=== PATIENT | female | born 1965 | race Two or more races ===

== ENCOUNTER 2017-11-30 07:07 | Day surgery (SDC) | payer OTHER | END 2017-11-30 12:40 | disposition home or self-care (01) | LOC: AMB-ENDOS 07:07 | DX: D12.5 Benign neoplasm of sigmoid colon (principal); K64.8 Other hemorrhoids; K63.5 Polyp of colon ==

== ENCOUNTER 2019-07-03 12:27 | Inpatient (IN) | payer OTHER ==
[~2019-07-03] VITALS: Ht 157.5 cm; Wt 96.6 kg
[2019-07-03] MEDS ORDERED: CYMBALTA60 MG PO (12:47)
[2019-07-03] MEDS ORDERED: METFORMIN HCL500 M3 PO (12:47)
[2019-07-03] MEDS ORDERED: SYNTHROID50 MCG PO (12:47)
[2019-07-03] MEDS ORDERED: ARICEPT10 MG PO (12:48)
[2019-07-03] MEDS ORDERED: XANAX1 MG PO (12:48)
[2019-07-03] MEDS ORDERED: CLONAZEPAM2 M1 PO (12:48)
[2019-07-03] MEDS ORDERED: VOLTAREN100 GM (12:49)
[2019-07-03] MEDS ORDERED: CRESTOR20 MG PO (12:49)
[2019-07-03] MEDS ORDERED: MIRTAZAPINE30 M1 PO (12:49)
[2019-07-13] MEDS ORDERED: MIRTAZAPINE15 MG PO (08:10)
[2019-07-24] MEDS ORDERED: HYOSCYAMINE0.125 M1 SL (10:52)
[2019-07-24] MEDS ORDERED: INTESTINEX680 M1 PO (10:53)
[2019-07-24] MEDS ORDERED: OXYC1TAB9 PO (10:53)
[2019-07-24] MEDS ORDERED: PROTONIX40 MG PO (10:53)
[2019-07-24] MEDS ORDERED: LIDODERM1 EACH TOP (10:54)
[2019-07-24] MEDS ORDERED: AMOX1TAB5 PO (10:54)
== END 2019-07-24 14:44 | disposition home or self-care (01) | DRG 329 ==
LOC: SURH 07-06 07:00 → O/R 07-13 06:26 → SURH 07-13 07:00
PROVIDERS: ADMIT Surgery
PROC: 0DJD8ZZ Inspection of Lower Intestinal Tract, Via Natural or Artificial Opening Endoscopic (ICD-10-PCS; 2019-07-13)
PROC: 0DTN4ZZ Resection of Sigmoid Colon, Percutaneous Endoscopic Approach (ICD-10-PCS; principal; 2019-07-13 14:45)
PROC: 4A033R1 Measurement of Arterial Saturation, Peripheral, Percutaneous Approach (ICD-10-PCS; 2019-07-14)
PROC: 3E0F7GC Introduction of Other Therapeutic Substance into Respiratory Tract, Via Natural or Artificial Opening (ICD-10-PCS; 2019-07-14)
PROC: BB24Y0Z Computerized Tomography (CT Scan) of Bilateral Lungs using Other Contrast, Unenhanced and Enhanced (ICD-10-PCS; 2019-07-17)
PROC: BW21Y0Z Computerized Tomography (CT Scan) of Abdomen and Pelvis using Other Contrast, Unenhanced and Enhanced (ICD-10-PCS; 2019-07-17)
PROC: 3E0436Z Introduction of Nutritional Substance into Central Vein, Percutaneous Approach (ICD-10-PCS; 2019-07-17)
PROC: 02HV33Z Insertion of Infusion Device into Superior Vena Cava, Percutaneous Approach (ICD-10-PCS; 2019-07-17)
PROC: 0W9F30Z Drainage of Abdominal Wall with Drainage Device, Percutaneous Approach (ICD-10-PCS; 2019-07-21)
DX: K57.20 Diverticulitis of large intestine with perforation and abscess without bleeding (principal); K65.1 Peritoneal abscess; J18.9 Pneumonia, unspecified organism; J90 Pleural effusion, not elsewhere classified; K91.31 Postprocedural partial intestinal obstruction; J95.89 Other postprocedural complications and disorders of respiratory system, not elsewhere classified; J98.11 Atelectasis; R50.82 Postprocedural fever; R09.02 Hypoxemia; G47.33 Obstructive sleep apnea (adult) (pediatric); E66.01 Morbid (severe) obesity due to excess calories; E11.9 Type 2 diabetes mellitus without complications; G30.0 Alzheimer's disease with early onset; F02.80 Dementia in other diseases classified elsewhere, unspecified severity, without behavioral disturbance, psychotic disturbance, mood disturbance, and anxiety; Z79.4 Long term (current) use of insulin

== ENCOUNTER 2019-07-05 05:40 | Day surgery (SDC) | payer OTHER ==
[~2019-07-05 05:40] MED LIST: ARICEPT10 MG PO; CLONAZEPAM2 M1 PO; CRESTOR20 MG PO; CYMBALTA60 MG PO; METFORMIN HCL500 M3 PO; MIRTAZAPINE30 M1 PO; SYNTHROID50 MCG PO; VOLTAREN100 GM; XANAX1 MG PO
== END 2019-07-05 09:45 | disposition home or self-care (01) ==
LOC: AMB-ENDOS 05:40
DX: D12.2 Benign neoplasm of ascending colon (principal); K64.8 Other hemorrhoids

== ENCOUNTER 2019-08-07 21:07 | Emergency (ER) | payer OTHER ==
[~2019-08-07] VITALS: Ht 160 cm; Wt 108.9 kg
[~2019-08-07 21:07] MED LIST changes: +AMOX1TAB5 PO; +HYOSCYAMINE0.125 M1 SL; +INTESTINEX680 M1 PO; +LIDODERM1 EACH TOP; +MIRTAZAPINE15 MG PO; +OXYC1TAB9 PO; +PROTONIX40 MG PO
== END 2019-08-08 17:25 | disposition home or self-care (01) ==
LOC: ER 21:07
DX: I82.492 Acute embolism and thrombosis of other specified deep vein of left lower extremity (principal); I73.9 Peripheral vascular disease, unspecified

== ENCOUNTER 2019-09-13 09:37 | Outpatient (CLI) | payer OTHER | END 2019-09-13 09:48 | disposition home or self-care (01) | LOC: RAD 09:37 | PROVIDERS: ATTEND Internal Medicine Rheumatology | DX: M16.0 Bilateral primary osteoarthritis of hip (principal); M17.0 Bilateral primary osteoarthritis of knee; M51.36 Other intervertebral disc degeneration, lumbar region; M50.30 Other cervical disc degeneration, unspecified cervical region; D37.4 Neoplasm of uncertain behavior of colon; D12.4 Benign neoplasm of descending colon; K57.20 Diverticulitis of large intestine with perforation and abscess without bleeding ==

== ENCOUNTER → 2019-09-13 10:51 | Outpatient (CLI) | payer OTHER | END | disposition home or self-care (01) | LOC: LAB 10:51 | PROVIDERS: ATTEND Surgery | DX: D37.4 Neoplasm of uncertain behavior of colon (principal); D12.4 Benign neoplasm of descending colon; K57.20 Diverticulitis of large intestine with perforation and abscess without bleeding ==

== ENCOUNTER 2019-09-19 20:56 | Inpatient (IN) | payer OTHER ==
[~2019-09-19] VITALS: Ht 61 cm; Wt 5.0 kg
[2019-10-13] MEDS ORDERED: ULTRACET PO (08:48)
[2019-10-13] MEDS ORDERED: INTESTINEX680 M1 PO (08:48)
== END 2019-10-14 17:29 | DRG 329 ==
LOC: ER 20:56 → SURH 09-20 09:16 → ICU 09-20 09:16 → SEC-K 09-20 09:16 → SURH 09-20 14:50 → ICU 09-22 22:40 → SURH 10-06 21:00
PROVIDERS: ADMIT Surgery; ATTEND Surgery
PROC: BW21Y0Z Computerized Tomography (CT Scan) of Abdomen and Pelvis using Other Contrast, Unenhanced and Enhanced (ICD-10-PCS; 2019-09-20)
PROC: BW40ZZZ Ultrasonography of Abdomen (ICD-10-PCS; 2019-09-20)
PROC: 0DH67UZ Insertion of Feeding Device into Stomach, Via Natural or Artificial Opening (ICD-10-PCS; 2019-09-20)
PROC: 0D7G8ZZ Dilation of Left Large Intestine, Via Natural or Artificial Opening Endoscopic (ICD-10-PCS; 2019-09-21)
PROC: 8E0ZXY6 Isolation (ICD-10-PCS; 2019-09-21)
PROC: 3E1M38X Irrigation of Peritoneal Cavity using Irrigating Substance, Percutaneous Approach, Diagnostic (ICD-10-PCS; 2019-09-22)
PROC: 02HV33Z Insertion of Infusion Device into Superior Vena Cava, Percutaneous Approach (ICD-10-PCS; 2019-09-22)
PROC: 3E0436Z Introduction of Nutritional Substance into Central Vein, Percutaneous Approach (ICD-10-PCS; 2019-09-22)
PROC: 4A033R1 Measurement of Arterial Saturation, Peripheral, Percutaneous Approach (ICD-10-PCS; 2019-09-22)
PROC: 0BH17EZ Insertion of Endotracheal Airway into Trachea, Via Natural or Artificial Opening (ICD-10-PCS; 2019-09-22)
PROC: 5A1945Z Respiratory Ventilation, 24-96 Consecutive Hours (ICD-10-PCS; 2019-09-22)
PROC: 0T9B70Z Drainage of Bladder with Drainage Device, Via Natural or Artificial Opening (ICD-10-PCS; 2019-09-22)
PROC: 0DBG0ZZ Excision of Left Large Intestine, Open Approach (ICD-10-PCS; principal; 2019-09-22 11:00)
PROC: B24BZZZ Ultrasonography of Heart with Aorta (ICD-10-PCS; 2019-09-23)
PROC: 4A12X4Z Monitoring of Cardiac Electrical Activity, External Approach (ICD-10-PCS; 2019-09-23)
PROC: 30243N1 Transfusion of Nonautologous Red Blood Cells into Central Vein, Percutaneous Approach (ICD-10-PCS; 2019-09-26)
DX: K56.690 Other partial intestinal obstruction (principal); K65.1 Peritoneal abscess; K63.1 Perforation of intestine (nontraumatic); J95.822 Acute and chronic postprocedural respiratory failure; T81.12XA Postprocedural septic shock, initial encounter; A41.9 Sepsis, unspecified organism; B37.1 Pulmonary candidiasis; R18.8 Other ascites; J90 Pleural effusion, not elsewhere classified; E87.2 Acidosis; A04.72 Enterocolitis due to Clostridium difficile, not specified as recurrent; N17.9 Acute kidney failure, unspecified; J95.89 Other postprocedural complications and disorders of respiratory system, not elsewhere classified; J98.11 Atelectasis; T81.44XA Sepsis following a procedure, initial encounter; I48.19 Other persistent atrial fibrillation; E27.40 Unspecified adrenocortical insufficiency; B37.49 Other urogenital candidiasis; T81.41XA Infection following a procedure, superficial incisional surgical site, initial encounter; R53.81 Other malaise; E87.6 Hypokalemia; B96.29 Other Escherichia coli [E. coli] as the cause of diseases classified elsewhere; B95.2 Enterococcus as the cause of diseases classified elsewhere; K76.0 Fatty (change of) liver, not elsewhere classified; K63.89 Other specified diseases of intestine; K57.30 Diverticulosis of large intestine without perforation or abscess without bleeding; K66.0 Peritoneal adhesions (postprocedural) (postinfection); I08.1 Rheumatic disorders of both mitral and tricuspid valves; R11.2 Nausea with vomiting, unspecified; E11.65 Type 2 diabetes mellitus with hyperglycemia; E66.01 Morbid (severe) obesity due to excess calories; G47.33 Obstructive sleep apnea (adult) (pediatric); F32.9 Major depressive disorder, single episode, unspecified; Z20.828 Contact with and (suspected) exposure to other viral communicable diseases; Z79.4 Long term (current) use of insulin; Z79.01 Long term (current) use of anticoagulants

== ENCOUNTER 2019-10-31 07:51 | Emergency (ER) | payer OTHER ==
[~2019-10-31] VITALS: Ht 157.5 cm; Wt 78.5 kg
[~2019-10-31 07:51] MED LIST changes: +ULTRACET PO
[2019-10-31] MEDS ORDERED: ULTRAM50 MG PO (13:42)
[2019-10-31] MEDS ORDERED: KETO10TA2 PO (13:42)
== END 2019-10-31 14:31 ==
LOC: ER 07:51
DX: R09.02 Hypoxemia (principal); Z99.11 Dependence on respirator [ventilator] status

== ENCOUNTER 2019-11-08 18:38 | Emergency (ER) | payer OTHER ==
[~2019-11-08] VITALS: Ht 157.5 cm; Wt 77.1 kg
[~2019-11-08 18:38] MED LIST changes: +KETO10TA2 PO; +ULTRAM50 MG PO
[2019-11-08] MEDS ORDERED: CARAFATE1 GM/10 ML PO (18:51)
[2019-11-08] MEDS ORDERED: PEPCID AC20 MG PO (18:51)
== END 2019-11-08 20:45 | disposition home or self-care (01) ==
LOC: ER 18:38
DX: S20.211A Contusion of right front wall of thorax, initial encounter (principal); S30.0XXA Contusion of lower back and pelvis, initial encounter; S80.01XA Contusion of right knee, initial encounter; S70.01XA Contusion of right hip, initial encounter; W18.09XA Striking against other object with subsequent fall, initial encounter; Y93.89 Activity, other specified; Y92.098 Other place in other non-institutional residence as the place of occurrence of the external cause; Y99.8 Other external cause status

== ENCOUNTER 2019-11-18 22:50 | Emergency (ER) | payer OTHER ==
[~2019-11-18] VITALS: Ht 157.5 cm; Wt 79.4 kg
[~2019-11-18 22:50] MED LIST changes: +CARAFATE1 GM/10 ML PO; +PEPCID AC20 MG PO
== END 2019-11-19 09:58 | disposition home or self-care (01) ==
LOC: ER 22:50
DX: S00.83XA Contusion of other part of head, initial encounter (principal); S80.02XA Contusion of left knee, initial encounter; S80.01XA Contusion of right knee, initial encounter; S90.02XA Contusion of left ankle, initial encounter; S90.01XA Contusion of right ankle, initial encounter; S20.212A Contusion of left front wall of thorax, initial encounter; S20.211A Contusion of right front wall of thorax, initial encounter; R07.89 Other chest pain; R10.2 Pelvic and perineal pain; M54.6 Pain in thoracic spine; R53.81 Other malaise; M19.011 Primary osteoarthritis, right shoulder; M77.31 Calcaneal spur, right foot; M77.32 Calcaneal spur, left foot; G30.8 Other Alzheimer's disease; F02.80 Dementia in other diseases classified elsewhere, unspecified severity, without behavioral disturbance, psychotic disturbance, mood disturbance, and anxiety; W01.198A Fall on same level from slipping, tripping and stumbling with subsequent striking against other object, initial encounter; Y93.01 Activity, walking, marching and hiking; Y92.59 Other trade areas as the place of occurrence of the external cause; Y99.8 Other external cause status

== ENCOUNTER → 2019-12-22 12:56 | Outpatient (CLI) | payer OTHER | END | disposition home or self-care (01) | LOC: T RESPIRAT 12:56 → LAB 12:56 | PROVIDERS: ATTEND Internal Medicine Pulmonary Disease | DX: R06.02 Shortness of breath (principal); J45.50 Severe persistent asthma, uncomplicated ==

== ENCOUNTER 2020-02-13 06:24 | Day surgery (SDC) | payer OTHER | END 2020-02-13 11:30 | disposition home or self-care (01) | LOC: AMB-ENDOS 06:24 | PROVIDERS: ATTEND Surgery | DX: K62.89 Other specified diseases of anus and rectum (principal); Z20.828 Contact with and (suspected) exposure to other viral communicable diseases; Z93.3 Colostomy status ==

== ENCOUNTER 2023-01-26 08:42 | Outpatient (CLI) | payer OTHER | END 2023-01-26 08:51 | disposition home or self-care (01) | LOC: RX STUDY 08:42 | PROVIDERS: ATTEND Surgery | DX: D37.4 Neoplasm of uncertain behavior of colon (principal); D12.4 Benign neoplasm of descending colon; K57.20 Diverticulitis of large intestine with perforation and abscess without bleeding; J84.10 Pulmonary fibrosis, unspecified; J84.112 Idiopathic pulmonary fibrosis ==

== ENCOUNTER 2023-11-25 12:51 | Outpatient (CLI) | payer OTHER ==
[2023-11-25 13:58] LABS: ABG PH 7.351 (7.35-7.45); ABG pCO2 40.8 mmHg (35-45); BASE EXCESS -3.3 mmol/l; BICARBONATE 22.1 mmol/l (23-25); SaO2 95.9 %; Tco2 23.4 mmol/l
[2023-11-25 13:59] LABS: allen test SATISFACTORY; o2 31 %; puncture site RADIAL RIGHT
== END 2023-11-25 12:52 | disposition home or self-care (01) ==
LOC: LAB 12:51
DX: J43.9 Emphysema, unspecified (principal)

== ENCOUNTER 2024-07-21 14:53 | Emergency (ER) | payer OTHER ==
[~2024-07-21] VITALS: Ht 154.9 cm; Wt 90.7 kg
[2024-07-21 15:14] VITALS: BP 112/74; O2SAT 98
[2024-07-21] MEDS ORDERED: SYNTHROID88 MCG PO (15:17)
[2024-07-21] MEDS ORDERED: COZAAR25 MG PO (15:17)
[2024-07-21] MEDS ORDERED: ZYLOPRIM100 M1 PO (15:18)
[2024-07-21] MEDS ORDERED: DULOXETINE HCL40 MG PO (15:18)
[2024-07-21] MEDS ORDERED: LANZOPRAZOLE (15:18)
[2024-07-21] MEDS ORDERED: TOPROL XL25 M1 (15:18)
[2024-07-21] MEDS ORDERED: ZYRTEC10 M3 PO (15:18)
[2024-07-21] MEDS ORDERED: LEVSIN0.125 MG PO (15:19)
[2024-07-21] MEDS ORDERED: HYDRODIURIL12.5 MG PO (15:19)
[2024-07-21] MEDS ORDERED: UBRELVY100 MG PO (15:19)
[2024-07-21] MEDS ORDERED: PEPCID AC20 MG PO (15:19)
[2024-07-21] MEDS ORDERED: METFORMIN HCL500 M3 PO (15:20)
[2024-07-21] MEDS ORDERED: EMGALITY P120 MG/1 M SQ (15:20)
[2024-07-21] MEDS ORDERED: ELIQUIS5 M1 PO (15:20)
[2024-07-21] MEDS ORDERED: ARNUITY ELLIP100 MCG IH (15:20)
[2024-07-21] MEDS ORDERED: BENZONATATE150 MG PO (15:21)
[2024-07-21] MEDS ORDERED: TOPIRAMATE ER50 M1 PO (15:21)
[2024-07-21] MEDS ORDERED: ZANAFLEX4 M1 PO (15:21)
[2024-07-21] MEDS ORDERED: CLONAZEPAM2 M1 PO (15:21)
[2024-07-21] MEDS ORDERED: TYLENOL ARTHRI650 MG (15:22)
[2024-07-21] MEDS ORDERED: CYCLOSPORINE25 MG (15:22)
[2024-07-21] MEDS ORDERED: ALLERGY RELIE15.8 ML NASAL (15:23)
[2024-07-21] MEDS ORDERED: PROAIR RESPICL90 MCG IH (15:23)
[2024-07-21] MEDS ORDERED: ATARAX10 MG PO (15:24)
[2024-07-21] MEDS ORDERED: TOLTERODINE TART2 M1 PO (15:24)
[2024-07-21] MEDS ORDERED: LIPITOR40 M1 PO (15:24)
[2024-07-21] MEDS ORDERED: MIRTAZAPINE30 M1 PO (15:25)
[2024-07-21] MEDS ORDERED: TRAZODONE HCL150 MG PO (15:25)
[2024-07-21] MEDS ORDERED: AMBIEN10 MG PO (15:26)
[2024-07-21] MEDS ORDERED: SINGULAIR4 M1 (15:26)
[2024-07-21] MEDS ORDERED: 0.9 % SODIUM CHLORIDE 1,000 ML IV SCH (16:15)
[2024-07-21] MEDS ORDERED: BARIUM SULFATE 450 ML ORAL.SUSP PO ONE (16:20)
[2024-07-21] MEDS ORDERED: FAMOTIDINE/PF 20 MG in 0.9 % SODIUM CHLORIDE 8 ML IV PUSH STA (16:42)
[2024-07-21] MEDS ORDERED: FAMOTIDINE/PF 20 MG/2 ML VIAL ONE (16:45)
[2024-07-21 16:53] LABS: BASO % 0.7 % (0.1-1.2); HEMATOCRIT 39.1 % (34.1-44.9); HEMOGLOBIN 12.4 g/dL (11.2-15.7); LYMPH # 2.27 (1.18-3.74); LYMPH % 19.2 % (19.3-53.1); MEAN CORPUSCULAR HEMOGLOBIN 26.8 pg (25.6-32.2); MONO % 7.6 % (4.7-12.5); NEUT # 8.39 (1.56-6.13); NEUT % 71.1 % (34.0-71.1); PLATELET COUNT 335 K/uL (163-369); RED BLOOD COUNT 4.62 M/uL (3.93-5.22)
[2024-07-21 17:19] LABS: INR 1.05; PARTIAL THROMBOPLASTIN TIME 25.4 SECONDS (22.0-34.0); PROTHROMBIN TIME 11.4 SECONDS (9.0-11.5)
[2024-07-21 17:24] LABS: ALBUMIN 3.3 gm/dL (3.4-5.0); ALKALINE PHOSPHATASE 179 U/L (50-136); ALT/SGPT 27 U/L (12-78); AMYLASE 51 U/L (25-115); ANION GAP 10 (10.0-20.0); AST/SGOT 22 U/L (15-37); BILIRUBIN TOTAL 0.27 mg/dL (0.3-1.2); BILIRUBIN,CONJUGATED < 0.10 mg/dL (0.0-0.2); BILIRUBIN,UNCONJUGATED 0.17 mg/dL (0.0-0.6); BLOOD UREA NITROGEN 18 mg/dL (7-18); BUN CREA RATIO 19 (7.0-25.0); CALCIUM 9.5 mg/dL (8.5-10.1); CARBON DIOXIDE 25 mEq/L (21-32); CREATININE SERUM 0.96 mg/dL (0.55-1.02); GFR 59.69; GLOBULINA 3.3 G/DL (2.4-3.5); GLUCOSE FASTING 87 mg/dL (65-100); LIPASE 57 U/L (13-75); OSMOLALITY SERUM 292 MOSM/KG (275-295); POTASSIUM 4.56 mEq/L (3.5-5.1); SODIUM 146 mmol/L (136-145); TOTAL PROTEIN 6.6 gm/dL (6.4-8.2)
[2024-07-21 18:00] LABS: CHLORIDE 116 mmol/L (98-107)
[2024-07-21 18:29] LABS: URINE APPEARANCE Clear; URINE BILIRRUBIN Negative (NEGATIVE); URINE BLOOD Trace; URINE COLOR Yellow; URINE GLUCOSE Negative (NEGATIVE); URINE KETONE Trace (NEGATIVE); URINE LEUKOCYTE Moderate; URINE NITRATE Negative; URINE PROTEIN Negative (NEGATIVE); URINE UROBILINOGEN 0.2 E.U./dl
[2024-07-21 18:32] LABS: URINE EPITHELIAL CELLS 6.6 uL (0.0-38.8); URINE RBC 5.7 uL (0.0-20.8); URINE WBC 177.1 uL (0.0-23.2)
[2024-07-21 18:35] LABS: URINE CAST 0.14 uL (0.0-1.40)
[2024-07-21] MEDS ORDERED: CEFTRIAXONE SODIUM 1,000 MG VIAL IV ONE (18:45)
[2024-07-21] MEDS ORDERED: CEFTRIAXONE SODIUM 1,000 MG VIAL ONE (18:47)
[2024-07-21] MEDS ORDERED: CEPHALEXIN500 MG PO (20:36)
== END 2024-07-21 21:05 | disposition home or self-care (01) ==
LOC: ER 14:53
PROVIDERS: General Practice
DX: N39.0 Urinary tract infection, site not specified (principal); R10.9 Unspecified abdominal pain; I10 Essential (primary) hypertension; E11.9 Type 2 diabetes mellitus without complications; Z79.84 Long term (current) use of oral hypoglycemic drugs
CPT/HCPCS: 36415; 74177; 96365; 96366; 99284; J0696; J3490; J7030; Q9965